=== PATIENT | male | born 1935 | race Caucasian/White ===

== ENCOUNTER → 2023-07-04 | Emergency (ER) | payer OTHER ==
--- NOTE | 2023-07-04 10:05 | RAD REPORT ---
EXAM DESCRIPTION: Judit Single View07/04/2023 9:23 am CLINICAL HISTORY: COUGH COMPARISON: Chest Single View dated 06/13/2016; CHEST SINGLE VIEW dated 11/09/2010 TECHNIQUE: Portable AP view of the chest. FINDINGS: The lungs are clear. No pneumothorax or effusion. Stable cardiomegaly. Mediastinal contou rs are unchanged, with tortuosity of the thoracic aorta. IMPRESSION: No acute pulmonary process. Stable cardiomegaly. .
--- NOTE | 2023-07-04 10:08 | EDPHYS ---
Physician Documentation [facility] Name: Camron Nunez Age: 88 yrs Sex: Male : 1935 Arrival Date: 07/04/2023 Time: 08:39 Bed 14 Private MD: ED Physician Arnol Wyatt HPI: 07/04 09:20 This 88 yrs old Male presents to ER via Ambulatory with complaints of Leg Infection. rn 09:20 The patient presents with cellulitis of the left leg. Onset: The symptoms/episode rn began/occurred 2 day(s) ago. Possible cause(s): unknown. Modifying factors: the symptoms are alleviated by nothing, the symptoms are aggravated by nothing. Severity of symptoms: At their worst the symptoms were mild, in the emergency department the symptoms are unchanged. The patient has not experienced similar symptoms in the past. Patient reports noticed red area to the left pretibial region approximately 2 days ago. No fever or chills. No systemic symptoms. No streaking. No left inguinal pain. No swelling of the leg.. Historical: - PMHx: 08:48 Anxiety; Atrial Fib; CAD; High Cholesterol; ll1 - Immunization history:: Adult Immunizations up to date. - Social history:: Smoking status: Patient denies any tobacco usage or history of. - Family history:: not pertinent. - Hospitalizations: : No recent hospitalization is reported. ROS: 09:20 Constitutional: Negative for fever, chills, and weight loss, Cardiovascular: Negative rn for chest pain, palpitations, and edema, Respiratory: Negative for shortness of breath, wheezing, and pleuritic chest pain, positive for cough Abdomen/GI: Negative for abdominal pain, nausea, vomiting, diarrhea, and constipation, MS/Extremity: Positive for left lower extremity area of swelling and redness Skin: Redness to left lower extremity Exam: 09:20 Constitutional: This is a well developed, well nourished patient who is awake, alert, rn and in no acute distress. Cardiovascular: Regular rate and rhythm. No pulse deficits. Respiratory: Speaking full sentences, unlabored. No increased work of breathing, no retractions or nasal flaring. Skin: 3 cm area of erythema and mild swelling left distal pretibial region. Area of erythema with centralized ulceration, almost the appearance of a bite. No necrosis. No streaking. No crepitus. MS/ Extremity: Pulses equal, no cyanosis. Neurovascular intact. Full, normal range of motion. Equal circumference. Vital Signs: 08:53 BP 162 / 103; Pulse 85; Resp 18; Temp 98.2; Pulse Ox 96% ; Weight 86.18 kg; Height 6 db ft. 0 in. ; 09:45 BP 119 / 87; Pulse 86; Resp 18; Pulse Ox 96% on R/A; db 08:53 Body Mass Index 25.77 (86.18 kg, 182.88 cm) db MDM: 08:43 Patient medically screened. rn 10:07 Differential diagnosis: cellulitis. Differential diagnosis: insect bite. Data reviewed: rn vital signs, nurses notes. Data reviewed: radiologic studies, plain films, and as a result, I will discharge patient. Counseling: I had a detailed discussion with the patient and/or guardian regarding the historical points, exam findings, and any diagnostic results supporting the discharge/admit diagnosis, radiology results, the need for outpatient follow up, to return to the emergency department if symptoms worsen or persist or if there are any questions or concerns that arise at home. Special discussion: I discussed with the patient/guardian in detail that at this point there is no indication for admission to the hospital. It is understood, however, that if the symptoms persist or worsen the patient needs to return immediately for re-evaluation. 07/04 08:58 Order name: XRAY Chest (1 view); Complete Time: 10:07 rn Administered Medications: No medications were administered Disposition Summary: 07/04/23 10:08 Discharge Ordered Notes: Location: Home rn Problem: new rn Symptoms: are unchanged rn Condition: Stable rn Diagnosis - Cellulitis of left lower limb rn Followup: rn - With: Private Physician - When: As needed - Reason: Recheck today's complaints, Re-evaluation by your physician Discharge Instructions: - Discharge Summary Sheet rn - Cellulitis, Adult rn Forms: - Medication Reconciliation Form rn - Thank You Letter rn - Antibiotic government service executive - Prescription Opioid Use rn - Patient Portal Instructions rn - Leadership Thank You Letter rn Prescriptions: - mupirocin 2 % Topical Ointment Kit - apply 1 application TOPICAL route 3 times per day for 7 days; 1 unit; Refills: rn 0, Product Selection Permitted - Bactrim DS 800-160 mg Oral Tablet - take 1 tablet ORAL route every 12 hours for 10 days; 20 tablet; Refills: 0, rn Product Selection Permitted Signatures: Dispatcher [employer] Arnol Siu MD MD rn Melissa Dougherty RN RN ll1 Opal Diaz RN RN db
--- NOTE | 2023-07-04 10:08 | ER ---
Nurse's Notes [facility] Name: Camron Nunez Age: 88 yrs Sex: Male : 1935 Arrival Date: 07/04/2023 Time: 08:39 Bed 14 Private MD: Diagnosis: Cellulitis of left lower limb Presentation: 07/04 08:53 Chief complaint: Patient states: LEFT LOWER LEG WOUND X 2 DAYS. DIME SIZED WOUND ON db LEFT LOWER LEG. LOCALIZED REDNESS NO SPREADING OR TENDERNESS. Coronavirus screen: Vaccine status: Patient reports receiving the 2nd dose of the covid vaccine. Client denies travel out of the [place] in the last 14 days. At this time, the client does not indicate any symptoms associated with coronavirus-19. Ebola Screen: Patient negative for fever greater than or equal to 101.5 degrees Fahrenheit, and additional compatible Ebola Virus Disease symptoms Patient denies exposure to infectious person. Patient denies travel to an Ebola-affected area in the 21 days before illness onset. No symptoms or risks identified at this time. Initial Sepsis Screen: Does the patient meet any 2 criteria? No. Patient's initial sepsis screen is negative. Does the patient have a suspected source of infection? No. Patient's initial sepsis screen is negative. Risk Assessment: Do you want to hurt yourself or someone else? Patient reports no desire to harm self or others. Onset of symptoms was July 02, 2023. 08:53 Method Of Arrival: Ambulatory db 08:53 Acuity: ROMERO 3 db Triage Assessment: 08:53 General: Appears in no apparent distress. comfortable, Behavior is calm, cooperative. db Pain: Complains of pain in left leg. Neuro: Level of Consciousness is awake, alert, obeys commands, Oriented to person, place, time, situation, Speech is normal. Respiratory: Airway is patent Respiratory effort is even, unlabored, Respiratory pattern is regular, symmetrical. Derm: Wound noted left leg. Musculoskeletal: Circulation, motion, and sensation intact. Capillary refill < 3 seconds. Historical: - PMHx: 08:48 Anxiety; Atrial Fib; CAD; High Cholesterol; ll1 - Immunization history:: Adult Immunizations up to date. - Social history:: Smoking status: Patient denies any tobacco usage or history of. - Family history:: not pertinent. - Hospitalizations: : No recent hospitalization is reported. Screenin:18 [facility] ED Fall Risk Assessment (Adult) History of falling in the last 3 months, db including since admission No falls in past 3 months (0 pts) Confusion or Disorientation No (0 pts) Intoxicated or Sedated No (0 pts) Impaired Gait Yes (1 pt) Mobility Assist Device Used Yes (1 pt) Altered Elimination No (0 pt) Score/Fall Risk Level 0 - 2 = Low Risk Oriented to surroundings, Maintained a safe environment. Abuse screen: Denies threats or abuse. Denies injuries from another. Nutritional screening: No deficits noted. Tuberculosis screening: No symptoms or risk factors identified. Assessment: 08:56 Reassessment: Patient appears in no apparent distress at this time. Patient and/or db family updated on plan of care and expected duration. Pain level reassessed. Patient is alert, oriented x 3, equal unlabored respirations, skin warm/dry/pink. General: Appears in no apparent distress. comfortable, Behavior is calm, cooperative. Neuro: Level of Consciousness is awake, alert, obeys commands, Oriented to person, place, time, situation. 10:18 Reassessment: Patient appears in no apparent distress at this time. Patient and/or db family updated on plan of care and expected duration. Pain level reassessed. Patient is alert, oriented x 3, equal unlabored respirations, skin warm/dry/pink. Vital Signs: 08:53 BP 162 / 103; Pulse 85; Resp 18; Temp 98.2; Pulse Ox 96% ; Weight 86.18 kg; Height 6 db ft. 0 in. ; 09:45 BP 119 / 87; Pulse 86; Resp 18; Pulse Ox 96% on R/A; db 08:53 Body Mass Index 25.77 (86.18 kg, 182.88 cm) db ED Course: 08:43 Patient arrived in ED. mg5 08:43 Arnol Wyatt MD is Attending Physician. rn 08:45 Opal Diaz, HERMAN is Primary Nurse. db 08:47 Arm band placed on Patient placed in an exam room, on a stretcher. ll1 08:54 Triage completed. db 09:25 XRAY Chest (1 view) In Process Unspecified. EDMS 10:22 Patient has correct armband on for positive identification. Bed in low position. Call db light in reach. Side rails up X 1. Provided Education on: DISCHARGE. Pulse ox on. NIBP on. 10:22 No provider procedures requiring assistance completed. Patient did not have IV access db during this emergency room visit. Administered Medications: No medications were administered Medication: 10:18 VIS not applicable for this client. db Outcome: : Discharge ordered by . rn 10:22 Discharged to home ambulatory, db 10: Condition: stable 10:22 Discharge instructions given to patient, Instructed on discharge instructions, follow up and referral plans. Prescriptions given X 1, 10:30 Patient left the ED. db Signatures: Dispatcher [employer] EDMS Arnol Wyatt MD MD rn Lewis, Lynsay, RN RN ll1 Opal Diaz RN RN db Henny Martinez mg5
[2023-07-04 11:27] VITALS: BP 119/87; TEMP 98.2; O2SAT 96
== END ==
LOC: ER 08:39
DX: L03.116 Cellulitis of left lower limb (principal); R05.9 Cough, unspecified
CPT/HCPCS: 71045; 99283

== ENCOUNTER 2023-10-19 15:11 | Emergency (ER) | payer OTHER, MEDICARE ==
[2023-10-19 15:44] LABS: Absolute Basophils 0.1 K/uL (0-0.5); Absolute Eosinophils 0.3 K/uL (0-0.5); Absolute Lymphocytes (CBC) 3.3 K/uL (0.7-4.9); Absolute Monocytes 0.7 K/uL (0.1-1.3); Basophils % 0.7 % (0-1.3); Eosinophils % 3.7 % (0-4.4); Hematocrit 38.5 % (39.6-49.0); Hemoglobin 13.1 g/dL (13.6-17.9); Lymphocytes % 45.1 % (15.3-44.8); MCH 31.9 pg (27.0-35.0); MCV 93.9 fL (80-100); MPV 7.3 fL (7.6-11.3); Neutrophils % 41.5 % (41.7-73.7); Nucleated Red Blood Cells % 0.1 % (0-0); Platelets 136 thou/uL (152-406); Red Cell Distribution Width 13.8 % (12.1-15.2)
[2023-10-19 15:59] LABS: Anion Gap 5.7 mEq/L (5.0-15.0); Potassium 3.7 mEq/L (3.5-5.1); Troponin High Sensitivity 10.3 pg/mL (<58.9)
[2023-10-19 16:18] LABS: Albumin 3.4 g/dL (3.4-5.0); Bilirubin Direct 0.3 mg/dL (0-0.2); Bilirubin Indirect, Calculated 0.7 mg/dL (0.2-0.8); Globulin 3.5 g/dL (2.3-3.5); Protein, Total 6.9 g/dL (6.4-8.2)
--- NOTE | 2023-10-19 16:35 | RAD REPORT ---
EXAM DESCRIPTION: Estrada Single View10/19/2023 3:59 pm CLINICAL HISTORY: Chest pain COMPARISON: June 2023 FINDINGS: The lungs appear clear of acute infiltrate. The heart is moderately to markedly enlarged IMPRESSION: No acute abnormalities displayed
--- NOTE | 2023-10-19 17:40 | RAD REPORT ---
EXAM DESCRIPTION: CT - Chest For Pe Angio - 10/19/2023 5:18 pm CLINICAL HISTORY: Chest pain COMPARISON: 2015 TECHNIQUE: Dynamically enhanced axial 3 mm thick images of the chest were obtained during administra tion of 100 mL Isovue 370 IV contrast. Coronal and oblique reconstruction images were generated and r eviewed. Exam utilizes a protocol for optimal evaluation of pulmonary arterial tree. Maximum intensity projections 3D imaging was utilized All CT scans are performed using dose optimization technique as appropriate and may include automated exposure control or mA/KV adjustment according to patient size. FINDINGS: A pulmonary embolus is not seen. A thoracic aortic aneurysm is not noted. Thrombus and ulcerated plaques are present descending thorac ic aorta A pleural effusion is not seen. A pericardial effusion is not seen. Cardiomegaly A lung consolidation is not present. Cirrhotic liver Mild to moderate compression deformity midthoracic vertebral body has a more chronic than acute appea manuel IMPRESSION: Negative for a pulmonary embolism.
--- NOTE | 2023-10-19 17:40 | RAD REPORT ---
EXAM DESCRIPTION: USExtrem Venous W Compress Bil10/19/2023 4:50 pm CLINICAL HISTORY: Leg pain COMPARISON: none FINDINGS: The common femoral, superficial femoral, greater saphenous, popliteal and posterior tibial veins bilaterally are compressible and demonstrate augmentation. Doppler demonstrates good flow. Grayscale, color and spectral analysis performed on all vessels IMPRESSION: No evidence of deep venous thrombosis involving either lower extremity.
--- NOTE | 2023-10-19 18:19 | EDPHYS ---
Physician Documentation [facility] Name: Camron Nunez Age: 88 yrs Sex: Male : 1935 Arrival Date: 10/19/2023 Time: 15:11 Bed 6 Private MD: ED Physician Leandro Butts HPI: 10/18 17:25 This 88 yrs old Male presents to ER via Wheelchair with complaints of Chest Pain, kb Shortness Of Breath. 17:25 Pt is an 88 year old male who presents for shortness of breath that started a few days kb ago and has been getting progressively getting worse. Today pt started having chest pain to center of chest with no radiation. Denies fever. . Historical: - Allergies: 15:27 No Known Allergies; aa5 - PMHx: 15:18 Anxiety; Atrial Fib; CAD; High Cholesterol; aa5 15:27 COPD; aa5 - Immunization history:: Adult Immunizations unknown. - Infectious Disease History:: Denies. - Social history:: Smoking status: Patient/guardian denies using tobacco, but has a distant history of tobacco abuse. ROS: 15:38 Constitutional: As per HPI kb Exam: 15:37 Constitutional: This is a well developed, well nourished patient who is awake, alert, kb and in no acute distress. Head/Face: Normocephalic, atraumatic. ENT: Moist Mucous membranes Respiratory: Respirations even and unlabored. No increased work of breathing. Talking in full sentences Abdomen/GI: Soft, non-tender. No distention Skin: Warm, dry with normal turgor. Normal color. Neuro: Awake and alert, GCS 15, oriented to person, place, time, and situation. Moves all extremities. Normal gait. 15:37 Cardiovascular: Rate: normal, Rhythm: irregularly irregular, 15:37 ECG was reviewed by the Attending Physician. 15:37 Musculoskeletal/extremity: Extremities: grossly normal except: noted in the right leg: kb pain, tenderness, ROM: intact in all extremities, Circulation is intact in all extremities. Sensation intact. DVT Exam: pain, swelling, tenderness, that is mild, of the right leg, Vital Signs: 15:18 BP 133 / 68; Pulse 71; Resp 24 S; Temp 98.2(O); Pulse Ox 96% on R/A; aa5 15:32 BP 133 / 68; Pulse 61; Resp 18; Pulse Ox 98% on R/A; ld1 16:47 BP 108 / 67; Pulse 50; Resp 18; Pulse Ox 93% on R/A; ld1 18:42 BP 115 / 72; Pulse 63; Resp 18; Pulse Ox 100% on R/A; ld1 MDM: 15:25 Patient medically screened. kb 15:38 Data reviewed: vital signs, nurses notes. kb 18:14 Differential diagnosis: arrhythmia, acute mi, pulmonary edema, PE. Consideration of kb Admission/Observation Escalation of care including admission/observation considered. admission considered but pt wants to go home. States he will return for worsening symptoms and his daughter will be with him who is a nurse. . Historians other than the Patient: Daughter/Son: daughter. Counseling: I had a detailed discussion with the patient and/or guardian regarding the historical points, exam findings, and any diagnostic results supporting the discharge/admit diagnosis, lab results, radiology results, the need for outpatient follow up, a fill plant operator, a family practitioner, to return to the emergency department if symptoms worsen or persist or if there are any questions or concerns that arise at home. ED course: daughter states pt has follow up with fill plant operator and roller man next week. 18:18 Refusal of service: The patient/guardian displays adequate decision making capability kb and despite a detailed discussion of alternatives, benefits, risks, and consequences refuses: Admission to the hospital for further work-up and treatment. 10/18 15:21 Order name: Basic Metabolic Panel; Complete Time: 16:00 10/18 15:21 Order name: CBC with Diff; Complete Time: 15:45 10/18 15:21 Order name: Troponin HS; Complete Time: 16:00 ld10/18 15:36 Order name: LFT's; Complete Time: 16:19 kb 10/18 15:36 Order name: D-Dimer; Complete Time: 16:36 kb 10/18 15:36 Order name: Magnesium; Complete Time: 16:19 kb 10/18 15:36 Order name: BNP; Complete Time: 16:19 kb 10/18 15:21 Order name: XRAY Chest (1 view); Complete Time: 16:36 1 10/18 15:36 Order name: US Extremity Venous W Compression Giovani; Complete Time: 17:42 kb 10/18 16:37 Order name: CT Chest For PE Angio; Complete Time: 17:42 kb 10/18 15:21 Order name: EKG; Complete Time: 15: 10/18 15:21 Order name: Cardiac monitoring; Complete Time: 15:10/18 15:21 Order name: EKG - Nurse/Tech; Complete Time: 15:10/18 15:21 Order name: IV Saline Lock; Complete Time: :10/18 15:21 Order name: Labs collected and sent; Complete Time: 15: ld10/18 15:21 Order name: O2 Per Protocol; Complete Time: 15:10/18 15:21 Order name: O2 Sat Monitoring; Complete Time: : ld EC:37 Rate is 70 beats/min. Rhythm is regular. Left axis deviation noted. QRS interval is kb normal at 148 msec. QT interval is prolonged at 503 msec. Administered Medications: No medications were administered Disposition Summary: 10/19/23 18:18 Discharge Ordered Notes: Location: Home kb Condition: Stable kb Diagnosis - Chest pain, unspecified kb - Dyspnea kb Followup: kb - With: Emergency Department - When: As needed - Reason: Worsening of condition Followup: kb - With: Private Physician - When: 2 - 3 days - Reason: Recheck today's complaints, Continuance of care, Re-evaluation by your physician Discharge Instructions: - Discharge Summary Sheet kb - Shortness of Breath, Adult, [id number] kb - Nonspecific Chest Pain, Adult, [id number] kb Forms: - Medication Reconciliation Form kb - Antibiotic Education kb - Prescription Opioid Use kb - Patient Portal Instructions kb - Leadership Thank You Letter kb Signatures: Dispatcher [employer] EDMS Joanna Barber, SWING TYPE LATHE OPERATOR-C SWING TYPE LATHE OPERATOR-Ckb Rosario Richards, RN RN aa5 Simran Payton RN RN ld1 Corrections: (The following items were deleted from the chart) 15:22 15:22 BASIC METABOLIC PANEL+C.LAB.BRZ ordered. EDMS EDMS 15:22 15:22 CBC+H.LAB.BRZ ordered. EDMS EDMS 15:22 15:22 Troponin High Sensitivity+C.LAB.BRZ ordered. EDMS EDMS 15:36 15:36 Extrem Venous W Compression Giovani+US.RAD.BRZ ordered. EDMS EDMS
--- NOTE | 2023-10-19 18:19 | ER ---
Nurse's Notes [facility] Name: Camron Nunez Age: 88 yrs Sex: Male : 1935 Arrival Date: 10/19/2023 Time: 15:11 Bed 6 Private MD: Diagnosis: Chest pain, unspecified;Dyspnea Presentation: 10/18 15:18 Chief complaint: Patient states: chest pain today, also reports SOB. Pt's family aa5 reports cough. 15:18 Coronavirus screen: shortness of breath. Ebola Screen: Patient denies travel to an [facility] Ebola-affected area in the 21 days before illness onset. Initial Sepsis Screen: Does the patient meet any 2 criteria? No. Patient's initial sepsis screen is negative. Does the patient have a suspected source of infection? No. Patient's initial sepsis screen is negative. Risk Assessment: Do you want to hurt yourself or someone else? Patient reports no desire to harm self or others. Onset of symptoms was September 2023. 15:18 Acuity: ROMERO 2 aa5 15:18 Method Of Arrival: Wheelchair aa5 Historical: - Allergies: 15:27 No Known Allergies; aa5 - PMHx: 15:18 Anxiety; Atrial Fib; CAD; High Cholesterol; aa5 15:27 COPD; aa5 - Immunization history:: Adult Immunizations unknown. - Infectious Disease History:: Denies. - Social history:: Smoking status: Patient/guardian denies using tobacco, but has a distant history of tobacco abuse. Screenin:32 [facility] ED Fall Risk Assessment (Adult) History of falling in the last 3 months, ld1 including since admission No falls in past 3 months (0 pts). Abuse screen: Denies threats or abuse. Denies injuries from another. Nutritional screening: No deficits noted. Tuberculosis screening: No symptoms or risk factors identified. Assessment: 15:32 General: Appears in no apparent distress. comfortable, Behavior is calm, cooperative, ld1 appropriate for age. Pain: Complains of pain in chest Pain does not radiate. Pain currently is 0 out of 10 on a pain scale. at worst was 8 out of 10 on a pain scale. Quality of pain is described as throbbing, Pain began gradually, Is intermittent. Neuro: Level of Consciousness is awake, alert, obeys commands, Oriented to person, place, time, situation. Neuro:. Cardiovascular: Capillary refill < 3 seconds Patient's skin is warm and dry. Cardiovascular: Rhythm is irregular. Respiratory: Reports. GI: No signs and/or symptoms were reported involving the gastrointestinal system. : No signs and/or symptoms were reported regarding the genitourinary system. EENT: No signs and/or symptoms were reported regarding the EENT system. Derm: No signs and/or symptoms reported regarding the dermatologic system. Musculoskeletal: No signs and/or symptoms reported regarding the musculoskeletal system. 18:42 Reassessment: Patient appears in no apparent distress at this time. No changes from ld1 previously documented assessment. Patient and/or family updated on plan of care and expected duration. Pain level reassessed. Patient is alert, oriented x 3, equal unlabored respirations, skin warm/dry/pink. Vital Signs: 15:18 BP 133 / 68; Pulse 71; Resp 24 S; Temp 98.2(O); Pulse Ox 96% on R/A; aa5 15:32 BP 133 / 68; Pulse 61; Resp 18; Pulse Ox 98% on R/A; ld1 16:47 BP 108 / 67; Pulse 50; Resp 18; Pulse Ox 93% on R/A; ld1 18:42 BP 115 / 72; Pulse 63; Resp 18; Pulse Ox 100% on R/A; ld1 ED Course: 15:15 Patient arrived in ED. mg5 15:18 Arm band placed on. aa5 15:25 Joanna Barber FNP-C [facility]. kb 15:25 Leandro Butts MD is Attending Physician. kb 15:26 Lennie Buckley, HERMAN is Primary Nurse. nj1 15:27 Client placed on continuous cardiac and pulse oximetry monitoring. NIBP monitoring hb applied. quality assurance monitor body on. Pulse ox on. NIBP on. 15:27 EKG done, by ED staff, reviewed by Joanna LLANES. hb 15:28 Triage completed. aa5 15:29 Basic Metabolic Panel Sent. bc6 15:29 CBC with Diff Sent. bc6 15:29 Troponin HS Sent. bc6 15:32 Patient has correct armband on for positive identification. Placed in gown. Bed in low ld1 position. Call light in reach. Side rails up X2. quality assurance monitor body on. Door closed. Noise minimized. Warm blanket given. 15:32 No provider procedures requiring assistance completed. Inserted saline lock: 20 gauge ld1 in right upper arm, using aseptic technique. Blood collected. O2 via RA. 16:01 XRAY Chest (1 view) In Process Unspecified. EDMS 16:47 Simran Payton, RN is Primary Nurse. ld1 16:48 US Extremity Venous W Compression Giovani In Process Unspecified. EDMS 17:20 CT Chest For PE Angio In Process Unspecified. EDMS 18:42 IV discontinued, intact, bleeding controlled, No redness/swelling at site. ld1 Administered Medications: No medications were administered Medication: 15:32 VIS not applicable for this client. ld1 Outcome: 18:18 Discharge ordered by . kb 18:42 Discharged to home ambulatory, ld1 18:42 Condition: stable 18:42 Discharge instructions given to patient, Instructed on discharge instructions, follow up and referral plans. Demonstrated understanding of instructions, follow-up care, 18:42 Patient left the ED. ld1 Signatures: Dispatcher [employer] EDMS Joanna Barber, SWEEPER OPERATOR HIGHWAYS-C SWEEPER OPERATOR HIGHWAYS-CkRosario Moon, RN RN aa5 Eva Villagran RN RN Simran Payton, RN RN ld1 Alyssa Maldonado 6 Lennie Buckley, RN RN mo1 Henny Martinez mg5
[2023-10-19 19:12] VITALS: BP 115/72; TEMP 98.2; O2SAT 100
--- NOTE | 2023-10-22 13:03 | EKG ---
Test Date: 2023-10-19 Test Time: 15:26:55 [employer] Maker: DEBI MEASUREMENT RESULTS: Intervals: Rate: 70 [place]: QRSD: 148 QT: 466 QTc: 503 [place]: P: [place]: QRS: -87 T: -3 INTERPRETIVE STATEMENTS: Atrial fibrillation Left axis deviation Right bundle branch block Abnormal ECG Compared to ECG 06/13/2016 00:42:00 Ventricular premature complex(es) no longer present Electronically Signed On 10-22-23 12:56:50 CDT by Tarik Vincent
== END 2023-10-19 18:42 | disposition home or self-care (01) ==
LOC: ER 15:11
DX: R07.9 Chest pain, unspecified (principal); R06.00 Dyspnea, unspecified; J44.9 Chronic obstructive pulmonary disease, unspecified; F41.9 Anxiety disorder, unspecified
CPT/HCPCS: 93005; 85025; 80048; 36415; 83735; 85379; 80076; 84484; 83880; 71275; 71045; 93970; Q9967

== ENCOUNTER 2024-08-18 15:13 | Inpatient (IN) | payer MEDICARE, OTHER ==
--- NOTE | 2024-08-18 16:43 | RAD REPORT ---
Extremity Venous Uni Ltd CLINICAL INDICATION: Male, 89 years old.Pain;Swelling RIGHT TECHNIQUE: Complete duplex sonography of the lower extremity veins was performed of the affected limb . The examination included compression for vein patency, color Doppler imaging and flow augmentation in response to distal compression of the distal external iliac, common femoral, femoral, popliteal, peroneal, tibial and great saphenous veins. [id number]. COMPARISON: No prior exams FINDINGS: Duplex sonography imaging demonstrates all deep veins examined to be fully compressible with spontane ous, phasic and augmented flow in the affected limb. IMPRESSION: No evidence of deep venous thrombosis in the right lower extremity.
--- NOTE | 2024-08-18 17:05 | RAD REPORT ---
EXAM: Left lower extremity arterial ultrasound HISTORY: HS MAIN right leg Pain;Swelling Bed Name: 7 COMPARISON: None TECHNIQUE: Multiplanar grayscale and color Doppler images were obtained and a left lower extremity ar terial ultrasound. Spectral analysis of the Doppler waveforms were performed. FINDINGS: No significant calcified plaque is seen in the left lower extremity. Left lower extremity: Common femoral artery: Triphasic Superficial femoral artery: Triphasic Popliteal artery: Triphasic Posterior tibial artery: Monophasic Dorsalis pedis artery: Monophasic IMPRESSION: Monophasic waveforms in the posterior tibial and dorsalis pedis arteries with suggestion of at least moderate stenoses.
[2024-08-18 17:54] LABS: Absolute Basophils 0.1 K/uL (0-0.5); Absolute Eosinophils 0.3 K/uL (0-0.5); Absolute Lymphocytes (CBC) 3.5 K/uL (0.7-4.9); Absolute Monocytes 0.9 K/uL (0.1-1.3); Absolute Neutrophil 5.1 K/uL (1.8-8.0); Basophils % 0.5 % (0-1.3); Eosinophils % 3.2 % (0-4.4); Hematocrit 39.3 % (39.6-49.0); Hemoglobin 13.9 g/dL (13.6-17.9); Lymphocytes % 35.6 % (15.3-44.8); MCHC 35.4 g/dL (32.0-36.0); MCV 93.4 fL (80-100); MPV 6.9 fL (7.6-11.3); Monocytes % 9.6 % (3.3-12.3); Neutrophils % 51.1 % (41.7-73.7); Nucleated Red Blood Cells % 0.1 % (0-0); Platelets 155 thou/uL (152-406); RBC Red Blood Cell Count 4.21 M/uL (4.33-5.43); Red Cell Distribution Width 14.2 % (12.1-15.2)
--- NOTE | 2024-08-18 18:02 | RAD REPORT ---
EXAMINATION: Tib Fib Right CLINICAL INDICATION: Male, 89 years old. Swelling;Pain COMPARISON: No prior exam. VIEWS: Four views FINDINGS: No fracture of the tibia or fibula identified. No radiographic evidence of osteomyelitis or soft tiss ue gas. Tricompartmental degenerative changes are present at the knee. Calcaneal spurring and midfoot degener ative changes. IMPRESSION: No acute osseous abnormality.
[2024-08-18 18:05] LABS: PT Prothrombin Time 25.7 SECONDS (10.0-13.0); PTT, Activated Partial Thromb 39.6 SECONDS (24.3-36.9); Protime INR 2.35
[2024-08-18 18:12] LABS: AST/SGOT 15 U/L (15-37); Albumin 3.4 g/dL (3.4-5.0); Albumin/Globulin Ratio 0.9 (1.1-1.8); Alkaline Phosphatase 131 U/L (45-117); Anion Gap 7.2 mEq/L (5.0-15.0); BUN Blood Urea Nitrogen 16 mg/dL (7-18); Bicarbonate 33 mEq/L (21-32); Bilirubin Total 1.6 mg/dL (0.2-1.0); Glomerular Filtration Rate 63 ml/min (=/>90); Glucose Level 101 mg/dL (74-106); Potassium 4.2 mEq/L (3.5-5.1); Protein, Total 7.4 g/dL (6.4-8.2); Sodium Level 139 mEq/L (136-145)
[2024-08-18 18:13] LABS: ALT/SGPT < 14 U/L (16-61)
[2024-08-18] MEDS ORDERED: CODEINE 30MG/APAP 300MG TAB ONE (18:55)
--- NOTE | 2024-08-18 20:24 | RAD REPORT ---
EXAMINATION: Knee Right Wo Cont CLINICAL INDICATION: Male, 89 years old.lower leg cellulitis with possible abscess TECHNIQUE: CT above extremity was performed without contrast. Reformats were performed. One or more o f the following dose reduction techniques were used: Automated exposure control, adjustment of the mA and/or kV according to patient size, and/or iterative reconstruction. Unless otherwise specified, incidental findings do not require dedicated imaging follow-up. [id number]. COMPARISON: Radiographs same-day FINDINGS: No right knee fracture identified. Tricompartmental degenerative changes identified with moderate med ial and mild lateral compartment joint space narrowing and moderate patellofemoral compartment spurring. Anterior to the patellar tendon and tibial tubercle, a subcutaneous hypoattenuating lesion is noted m easuring 5.7 x 4.5 x 2.1 cm is identified. This is solid in appearance. Could represent a hematoma. This does not have the appearance of an abscess. Performed vascular calcifications. IMPRESSION: No abscess or osteomyelitis. No right knee fracture. Superficial nodule anterior to the patellar tend on could represent a hematoma or other nonspecific soft tissue mass. If concern for neoplasm, MRI with and without contrast could further evaluate.
[2024-08-18] MEDS ORDERED: VANCOMYCIN 1 GM/VIAL ONE (20:43)
[2024-08-18] MEDS ORDERED: NA CHLORIDE 0.9% 250 ML ONE (20:43)
[2024-08-18 20:47] LABS: Specific Gravity 1.017 (1.005-1.030); Urine Bilirubin NEGATIVE (Negative); Urine Blood Negative (Negative); Urine Clarity Clear (Clear); Urine Color Yellow (Yellow); Urine Glucose NEGATIVE (Negative); Urine Ketones NEGATIVE (Negative); Urine Microscopic Reflex YN NO UMIC; Urine Nitrite NEGATIVE (Negative); Urine Protein NEGATIVE (Negative); Urine Urobilinogen 2+ (Normal)
--- NOTE | 2024-08-18 20:49 | ER ---
Nurse's Notes [facility] Name: Camron Nunez Age: 89 yrs Sex: Male : 1935 Arrival Date: 08/18/2024 Time: 15:13 Bed 3 Private MD: Diagnosis: Cellulitis of right lower limb;Infected Hematoma of Right lower Leg;Chronic atrial fibrillation Presentation: 08/18 16:11 Chief complaint: Spouse and/or significant other states: patient fell last Sunday ap3 08/12/24 and is having swelling to the right lower extremity with redness. Coronavirus screen: At this time, the client does not indicate any symptoms associated with coronavirus-19. Ebola Screen: No symptoms or risks identified at this time. Onset of symptoms was August 12, 2024. 16:11 Method Of Arrival: Wheelchair ap3 16:13 Initial Sepsis Screen: Does the patient meet any 2 criteria? No. Patient's initial ap3 sepsis screen is negative. Does the patient have a suspected source of infection? No. Patient's initial sepsis screen is negative. Risk Assessment: Do you want to hurt yourself or someone else? Patient reports no desire to harm self or others. 16:13 Acuity: ROMERO 3 ap3 Triage Assessment: 16:13 General: Appears in no apparent distress. Behavior is calm, cooperative, appropriate ap3 for age. Pain: Complains of pain in right leg. Neuro: Level of Consciousness is awake, alert, obeys commands, Oriented to person, place, time, situation, Appropriate for age. Cardiovascular: Patient's skin is warm and dry. Respiratory: Airway is patent Respiratory effort is even, unlabored, Respiratory pattern is regular, symmetrical. Historical: - Allergies: 16:12 No Known Allergies; ap3 - PMHx: 16:12 Anxiety; Anxiety; Atrial Fib; CAD; COPD; High Cholesterol; ap3 - Immunization history:: Client reports receiving the 2nd dose of the Covid vaccine, Flu vaccine is up to date. - Infectious Disease History:: Denies. - Social history:: Smoking status: Patient/guardian denies using tobacco. Screenin:13 [facility] ED Fall Risk Assessment (Adult) History of falling in the last 3 months, ap3 including since admission Yes- fall prone (multiple falls) (3 pts) Confusion or Disorientation No (0 pts) Intoxicated or Sedated No (0 pts) Impaired Gait Yes (1 pt) Mobility Assist Device Used No (0 pt) Altered Elimination No (0 pt) Score/Fall Risk Level 3 or more points = High Risk Oriented to surroundings, Maintained a safe environment, Educated pt \T\ family on fall prevention, incl call for assistance when getting out of bed, Assessed \T\ reinforced patient's understanding of fall precautions, Hourly rounding (assess needs \T\ fall precautionary measures) done, Used ambulatory aids as needed (educated on \T\ assisted with), Remained w/in arm's length of patient and in sight while toileting, Offered frequent toileting (1:1 observation), Utilized family, sitter, or virtual nuclear medicine tech as indicated. Abuse screen: Denies threats or abuse. Nutritional screening: No deficits noted. Tuberculosis screening: No symptoms or risk factors identified. Assessment: 18:25 General: Appears in no apparent distress. comfortable, Behavior is calm, cooperative. ss General: family member reports decreased urine output since yesterday. Pain: Complains of pain in R knee, R lower leg Pain currently is 3 out of 10 on a pain scale. Quality of pain is described as aching, tender, Pain began 6 days ago Is continuous. Neuro: Level of Consciousness is awake, alert, obeys commands, Oriented to person, place, time, situation. Respiratory: Airway is patent Respiratory effort is even, unlabored, Respiratory pattern is regular, symmetrical, Denies cough, shortness of breath. GI: Patient currently denies diarrhea, nausea, vomiting. EENT: Oral mucosa is moist. hard of hearing. Hearing aids in place, bilaterally. Derm: Bruising that is dark purple, green, on R knee/ R lower leg. Musculoskeletal: Swelling present in right leg. Vital Signs: 16:11 BP 133 / 75; Pulse 75; Resp 18; Temp 98.1; Pulse Ox 100% ; Weight 83.91 kg; Height 6 ap3 ft. 0 in. ; 18:14 BP 106 / 67; Pulse 68; Resp 15; Pulse Ox 94% on R/A; Pain 3/10; ss 19:40 BP 121 / 70; Pulse 74; Resp 16; Pulse Ox 95% ; cp4 21:14 BP 122 / 75; Pulse 71; Resp 18; Pulse Ox 95% ; cp4 21:59 BP 114 / 62; Pulse 80; Resp 18; Pulse Ox 98% ; cp4 16:11 Body Mass Index 25.09 (83.91 kg, 182.88 cm) ap3 18:14 Pain Scale: Adult ss ED Course: 15:17 Patient arrived in ED. al6 15:29 Ward Hernandez PA is PHCP. cp 15:29 Vazquez Ventura MD is Attending Physician. cp 16:14 Triage completed. ap3 16:14 Arm band placed on right wrist. ap3 16:41 US Lower Extremity Artery Uni Ltd In Process Unspecified. EDMS 16:41 US Extremity Venous Unilateral Ltd In Process Unspecified. EDMS 17:26 Denise Angelo, RN is Primary Nurse. ss 17:45 Inserted saline lock: 20 gauge in right upper arm, using aseptic technique. Blood ss collected. Flushed with 10 mL NS. Patient maintains SpO2 saturation greater than 95% on room air. 17:50 XRAY Tib Fib RIGHT In Process Unspecified. EDMS 18:25 Patient has correct armband on for positive identification. Bed in low position. Call ss light in reach. Side rails up X2. Adult w/ patient. telemetry monitor on. Pulse ox on. NIBP on. Warm blanket given. 19:00 Report given to Tejal Avendano RN and HERMAN Olguin. ss 20:01 Knee Right Wo Cont In Process Unspecified. EDMS 20:33 Sanchez cath inserted, using sterile technique, 16 Fr., by bankruptcy law specialist, balloon inflated, to cp4 gravity drainage, urine specimen collected. 20:37 Urinalysis w/ reflexes Sent. oe 20:47 Cezar Kumar MD is Hospitalizing Provider. cp 21:58 No provider procedures requiring assistance completed. Patient admitted, IV remains in cp4 place. 21:59 Provided Education on: admission. cp4 Administered Medications: 18:59 Drug: Acetaminophen-Codeine PO (300 mg-30 mg) 2 tabs PO once; RASS on ADMIN: Combtv4, ss Very Agttd3, Agttd2, Rstlss1, AlertClm0, Drwsy-1, Lt Sdtn-2, Mod Sdtn-3, Dp Sdtn-4, UnArsble-5 Route: PO; 20:17 Follow up: Response: No adverse reaction; Pain is decreased cp4 21:57 Follow up: Response: No adverse reaction; Pain is decreased cp4 20:52 Drug: vancoMYCIN IVPB 1 grams IVPB once over 2 hrs Route: IVPB; Infused Over: 2 hrs; cp4 Site: right antecubital; 21:57 Follow up: Response: No adverse reaction; IV Status: Completed infusion cp4 Medication: 18:25 VIS not applicable for this client. ss Output: 20:34 Urine: 150ml (Sanchez); Total: 150ml. cp4 Outcome: 20:48 Decision to Hospitalize by Provider. cp 21:58 Admitted to Med/surg accompanied by tech, via wheelchair, room 6, with chart, cp4 21:58 Condition: stable 21:58 Instructed on the need for admit, 22:30 Patient left the ED. cp4 Signatures: Dispatcher [employer] EDMS Denise Angelo RN RN Ward Molina PA PA cp Espinosa, Orlando oe Prokisch, Amanda, RN RN Clau Helms cp4 Amparo Duran
--- NOTE | 2024-08-18 20:49 | EDPHYS ---
Physician Documentation [facility] Name: Camron Nunez Age: 89 yrs Sex: Male : 1935 Arrival Date: 08/18/2024 Time: 15:13 Bed 3 Private MD: ED Physician Vazquez Ventura HPI: 08/18 16:25 This 89 yrs old Male presents to ER via Wheelchair with complaints of Leg Swelling. cp 16:25 The patient presents with pain, that is acute. The complaints affect the left knee and cp left lower leg. 16:25 Context: patient reports fall onto right knee and lower leg this past Sunday. Reports cp increasing swelling. Takes Xarelto blood thinner. 16:25 Associated signs and symptoms: Pertinent positives: warmth, Pertinent negatives fever, cp numbness. Historical: - Allergies: 16:12 No Known Allergies; ap3 - PMHx: 16:12 Anxiety; Anxiety; Atrial Fib; CAD; COPD; High Cholesterol; ap3 - Immunization history:: Client reports receiving the 2nd dose of the Covid vaccine, Flu vaccine is up to date. - Infectious Disease History:: Denies. - Social history:: Smoking status: Patient/guardian denies using tobacco. ROS: 16:30 Constitutional: Negative for body aches, chills, fever, poor PO intake, cp 16:30 Respiratory: Negative for cough, shortness of breath, wheezing, cp 16:30 Abdomen/GI: Negative for abdominal pain, nausea, vomiting, and diarrhea, 16:30 Eyes: Negative for injury, pain, redness, and discharge, cp 16:30 Cardiovascular: Positive for edema, Negative for chest pain, palpitations, 16:30 Neuro: Negative for altered mental status, dizziness, headache, weakness, 16:30 All other systems are negative, Exam: 16:33 Constitutional: The patient appears in no acute distress, alert, awake, cp non-diaphoretic, non-toxic, well developed, well nourished, uncomfortable, 16:33 Head/Face: Normocephalic, atraumatic. cp 16:33 Eyes: Periorbital structures: appear normal, Conjunctiva: normal, no exudate, no injection, Sclera: no appreciated abnormality, Lids and lashes: appear normal, bilaterally, 16:33 ENT: External ear(s): are unremarkable, Nose: is normal, Mouth: Lips: moist, Oral mucosa: moist, 16:33 Chest/axilla: Inspection: normal, 16:33 Cardiovascular: Rate: normal, Rhythm: irregular, Edema: ankle edema, that is mild, JVD: is not appreciated, 16:33 Respiratory: the patient does not display signs of respiratory distress, Respirations: normal, no use of accessory muscles, no retractions, labored breathing, is not present, Breath sounds: decreased breath sounds, that are mild, throughout, 16:33 Abdomen/GI: Inspection: abdomen appears normal, Palpation: abdomen is soft and non-tender, in all quadrants, 16:33 Musculoskeletal/extremity: Extremities: noted in the right knee and right lower leg: golf ball hematoma noted anterior lower knee with moderate surrounding and circumferential erythema, tenderness, 16:33 Neuro: Orientation: to person, place \T\ time. Mentation: is normal, 18:00 ECG was reviewed by the Attending Physician. Vital Signs: 16:11 BP 133 / 75; Pulse 75; Resp 18; Temp 98.1; Pulse Ox 100% ; Weight 83.91 kg; Height 6 ap3 ft. 0 in. ; 18:14 BP 106 / 67; Pulse 68; Resp 15; Pulse Ox 94% on R/A; Pain 3/10; ss 19:40 BP 121 / 70; Pulse 74; Resp 16; Pulse Ox 95% ; cp4 21:14 BP 122 / 75; Pulse 71; Resp 18; Pulse Ox 95% ; cp4 21:59 BP 114 / 62; Pulse 80; Resp 18; Pulse Ox 98% ; cp4 16:11 Body Mass Index 25.09 (83.91 kg, 182.88 cm) ap3 18:14 Pain Scale: Adult ss MDM: 16:15 Medical Screening Exam initiated cp 17:00 Differential diagnosis: hematoma, DVT, cellulitis, abscess, sepsis. cp 20:45 Data reviewed: vital signs, nurses notes, lab test result(s), EKG, radiologic studies, cp CT scan, plain films, ultrasound. 20:45 Management of patient was discussed with the following: Poultry Veterinarian: DR Rasmussen who will cp consult for surgical I\T\D and requests patient be admitted to services of hospitalist. I considered the following discharge prescriptions or medication management in the emergency department Medications were administered in the Emergency Department. See MAR. Independent interpretation of the following test(s) in the Emergency Department EKG: See my EKG interpretation above. Care significantly affected by the following chronic conditions: Chronic Obstructive Pulmonary Disease. Counseling: I had a detailed discussion with the patient and/or guardian regarding the historical points, exam findings, and any diagnostic results supporting the discharge/admit diagnosis, lab results, radiology results, the need for further work-up and treatment in the hospital. 20:50 Management of patient was discussed with the following: Hospitalist: DR José riddle admit after discussion. 08/18 16:21 Order name: Blood Culture Adult (2) cp 08/18 16:21 Order name: CBC with Diff; Complete Time: 18:07 cp 08/18 18:07 Interpretation: Normal except: RBC 4.21; HCT 39.3; MPV 6.9. cp 08/18 16:21 Order name: CMP; Complete Time: 18:39 cp 08/18 18:39 Interpretation: Normal except: CO2 33; GFR 63; ALT < 14; ALK 131; BILIT 1.6; GLOB 4.0; cp A/G 0.9. 08/18 16:21 Order name: Lactate w/ 2H reflex if indic.; Complete Time: 18:39 cp 08/18 16:21 Order name: Protime (+inr); Complete Time: 18:07 cp 08/18 16:21 Order name: Ptt, Activated; Complete Time: 18:07 cp 08/18 16:21 Order name: Urinalysis w/ reflexes; Complete Time: 10:26 cp 08/18 21:01 Order name: Urinalysis w/ reflexes EDMS 08/18 21:01 Order name: CBC with Automated Diff EDMS 08/18 21:01 Order name: CBC with Automated Diff; Complete Time: 10:26 EDMS 08/18 21:01 Order name: Comprehensive Metabolic Panel EDMS 08/18 21:01 Order name: Comprehensive Metabolic Panel; Complete Time: 10:26 EDMS 08/18 16:21 Order name: US Lower Extremity Artery Uni Ltd cp 08/18 16:21 Order name: US Extremity Venous Unilateral Ltd; Complete Time: 17:25 cp 08/18 17:25 Order name: XRAY Tib Fib RIGHT; Complete Time: 18:07 cp 08/18 19:39 Order name: Knee Right Wo Cont; Complete Time: 20:28 EDWI 08/18 21:01 Order name: CONS Physician Consult EDWI 08/18 16:21 Order name: Accucheck; Complete Time: 18:25 cp 08/18 16:21 Order name: Cardiac monitoring; Complete Time: 18:24 cp 08/18 16:21 Order name: EKG - Nurse/Tech; Complete Time: 18:24 cp 08/18 16:21 Order name: IV Saline Lock - Large Bore; Complete Time: 18:24 cp 08/18 16:21 Order name: Labs collected and sent; Complete Time: 18:24 cp 08/18 16:21 Order name: O2 Per Protocol; Complete Time: 18:24 cp 08/18 16:21 Order name: O2 Sat Monitoring; Complete Time: 18:24 cp 08/18 16:21 Order name: Vital Signs; Complete Time: 18:25 cp 08/18 20:17 Order name: Sanchez; Complete Time: 20:32 cp4 EC:00 Rate is 69 beats/min. Rhythm is irregular. QRS interval is prolonged at 142 msec. QT cp interval is normal. T waves are Inverted in leads aVR, V2. Interpreted by me. Reviewed by me. Administered Medications: 18:59 Drug: Acetaminophen-Codeine PO (300 mg-30 mg) 2 tabs PO once; RASS on ADMIN: Combtv4, ss Very Agttd3, Agttd2, Rstlss1, AlertClm0, Drwsy-1, Lt Sdtn-2, Mod Sdtn-3, Dp Sdtn-4, UnArsble-5 Route: PO; 20:17 Follow up: Response: No adverse reaction; Pain is decreased cp4 21:57 Follow up: Response: No adverse reaction; Pain is decreased cp4 20:52 Drug: vancoMYCIN IVPB 1 grams IVPB once over 2 hrs Route: IVPB; Infused Over: 2 hrs; cp4 Site: right antecubital; 21:57 Follow up: Response: No adverse reaction; IV Status: Completed infusion cp4 Disposition Summary: 08/18/24 20:48 Hospitalization Ordered Notes: Hospitalization Status: Inpatient Admission cp Provider: Cezar Kumar cp Condition: Stable cp Problem: new cp Symptoms: have improved cp Bed/Room Type: Standard cp Location: Intensive Care Unit(08/18/24 21:30) cg Room Assignment: 6-(08/18/24 21:30) cg Diagnosis - Cellulitis of right lower limb cp - Infected Hematoma of Right lower Leg cp - Chronic atrial fibrillation cp Forms: - Medication Reconciliation Form cp - SBAR form cp - Leadership Thank You Letter cp Addendum: 08/23/2024 12:46 I was immediately available for consultation during this patient's visit. I did not e c2 personally see the patient or discuss the patient with the [facility]. . Signatures: Dispatcher [employer] EDMS Denise Angelo, RN RN ss Ward Hernandez PA PA cp Garcia, Cindy, RN RN cg Tejal Mckeon RN RN ap3 Vazquez Ventura MD MD ec2 Clau Huntley cp4 Corrections: (The following items were deleted from the chart) 08/18 16:21 16:21 BLOOD CULTURE*+BA.LAB.BRZ ordered. EDMS EDMS 16:21 16:21 CBC+H.LAB.BRZ ordered. EDMS EDMS 16:21 16:21 COMPREHENSIVE METABOLIC PANEL+C.LAB.BRZ ordered. EDMS EDMS 16:21 16:21 LACTATE+C.LAB.BRZ ordered. EDMS EDMS 16:21 16:21 PROTIME (+INR)+COAG.LAB.BRZ ordered. EDMS EDMS 16:21 16:21 PTT, ACTIVATED+COAG.LAB.BRZ ordered. EDMS EDMS 16:21 16:21 Urinalysis+U.LAB.BRZ ordered. EDMS EDMS 16:21 16:21 Lower Extremity Artery Uni Ltd+US.RAD.BRZ ordered. EDMS EDMS 16:22 16:21 Extremity Venous Uni Ltd+US.RAD.BRZ ordered. EDMS EDMS 17:26 17:26 Tib Fib Right+RAD.RAD.BRZ ordered. EDMS EDMS 19:39 18:47 CT RIGHT KNEE WO CONTRAST ordered. EDMS EDMS 21:30 20:48 Telemetry/MedSurg (Inpatient) cp cg 21:30 20:48 cp cg
--- NOTE | 2024-08-18 20:53 | P.HP ---
Certification for Inpatient Patient admitted to: Inpatient With expected LOS: >2 Midnights Practitioner: I am a practitioner with admitting privileges, knowledge of patient current condition, hospital course, and medical plan of care. Services: Services provided to patient in accordance with Admission requirements found in Title 42 Section 412.3 of the Code of Federal Regulations Patient History Date of Service: 08/18/24 Reason for admission: Pain and swelling in the right leg History of Present Illness: 89 yrs old Male with past medical history of anxiety, atrial fibrillation, on Xarelto, CAD, COPD, high cholesterol, brought to ER with swelling of the right leg which started a day ago and has been progressively getting worse and was brought to ER. Patient denies any fever or chills. No chest pain or shortness of breath. : patient fell last Sunday08/12/24 and started having swelling to the right lower extremity with redness. No nausea vomiting diarrhea Patient was assessed in the ER and is admitted for further management of right lower extremity cellulitis Home medications list reviewed: Yes - Past Medical/Surgical History Past Medical History: Reviewed- Non-Contributory Past Surgical History: Reviewed- Non-Contributory - Family History Family History: Reviewed- Non-Contributory - Social History Smoking Status: Never smoker Review of Systems 10-point ROS is otherwise unremarkable Physical Examination - Vital Signs Temperature: 97.2 F Blood Pressure: 136/78 Pulse: 82 Respirations: 18 Pulse Ox (%): 92 - Physical Exam General: Alert, In no apparent distress, Cooperative HEENT: Atraumatic, Normocephalic Neck: 2+ carotid pulse no bruit, No Thyromegaly Respiratory: Clear to auscultation bilaterally, Normal air movement Cardiovascular: Regular rate/rhythm, Normal S1 S2 Capillary refill: <2 Seconds Gastrointestinal: Soft and benign, W/out hepatosplenomegaly Musculoskeletal: No clubbing, Erythema, Tenderness, Warmth Integumentary: Tenderness/swelling, Erythema, Warmth Neurological: Normal strength at 5/5 x4 extr, Cranial nerves 3-12 intact Lymphatics: No axilla or inguinal lymphadenopathy - Studies Laboratory Data (last 24 hrs) 08/18/24 08/18/24 08/18/24 17:45 17:45 17:45 WBC 9.90 Hgb 13.9 Hct 39.3 L Plt Count 155 PT 25.7 H INR 2.35 APTT 39.6 H Sodium 139 Potassium 4.2 BUN 16 Creatinine 1.13 Glucose 101 Total Bilirubin 1.6 H AST 15 ALT < 14 L Alkaline Phosphatase 131 H Assessment and Plan - Plan Right lower extremity cellulitis Pain control Started on IV antibiotic Monitor closely on telemetry CT findings noted Doppler negative for DVT X-ray no fracture Surgical consult Hypertension Antihypertensives titrated Continue home medications and titrate as needed Hyperlipidemia Continue statin Atrial fibrillation Continue home medications and titrate as needed Will hold Xarelto for now GI/DVT prophylaxis Advanced directive full code Discharge Plan: Home Plan to discharge in: 48 Hours - Advance Directives Does patient have a Living Will: No Does patient have a Durable POA for Healthcare: No - Code Status/Comfort Care Code Status: Full Code Time Spent Managing Pts Care (In Minutes): 48
[2024-08-18] MEDS ORDERED: ONDANSETRON 4 MG/2 ML VIAL IV PRN (20:55)
[2024-08-18] MEDS ORDERED: ACETAMINOPHEN 325 MG TABLET PO PRN (20:55)
[2024-08-18] MEDS ORDERED: MORPHINE 2 MG/ML SYR IV PRN (22:42)
[2024-08-19] MEDS: TRAZODONE 50 MG TABLET ONE (00:08)
[2024-08-19] MEDS: CEFAZOLIN 1 GM in NA CHLORIDE 0.9% 50 ML IVPB SCH (00:17)
[2024-08-19] MEDS: TRAZODONE 50 MG TABLET PO SCH (00:17)
[2024-08-19 06:10] LABS: Absolute Basophils 0.1 K/uL (0-0.5); Absolute Eosinophils 0.3 K/uL (0-0.5); Absolute Lymphocytes (CBC) 2.5 K/uL (0.7-4.9); Absolute Neutrophil 6.1 K/uL (1.8-8.0); Basophils % 0.6 % (0-1.3); Hematocrit 35.4 % (39.6-49.0); Hemoglobin 12.4 g/dL (13.6-17.9); Lymphocytes % 25.2 % (15.3-44.8); MCH 32.8 pg (27.0-35.0); MCHC 35.1 g/dL (32.0-36.0); MCV 93.4 fL (80-100); MPV 7.3 fL (7.6-11.3); Monocytes % 9.8 % (3.3-12.3); Neutrophils % 61.4 % (41.7-73.7); Nucleated Red Blood Cells % 0.1 % (0-0); Platelets 123 thou/uL (152-406); RBC Red Blood Cell Count 3.79 M/uL (4.33-5.43)
[2024-08-19 06:34] LABS: AST/SGOT 15 U/L (15-37); Albumin 2.9 g/dL (3.4-5.0); Albumin/Globulin Ratio 0.9 (1.1-1.8); Alkaline Phosphatase 103 U/L (45-117); Anion Gap 7.3 mEq/L (5.0-15.0); BUN Blood Urea Nitrogen 15 mg/dL (7-18); Bicarbonate 31 mEq/L (21-32); Bilirubin Total 1.8 mg/dL (0.2-1.0); Globulin 3.2 g/dL (2.3-3.5); Glomerular Filtration Rate 86 ml/min (=/>90); Glucose Level 103 mg/dL (74-106); Potassium 3.3 mEq/L (3.5-5.1); Protein, Total 6.1 g/dL (6.4-8.2); Sodium Level 139 mEq/L (136-145)
[2024-08-19 06:40] LABS: ALT/SGPT < 14 U/L (16-61)
[2024-08-19] MEDS: Ringers Lactate 1,000 ML IV ONE (08:40)
[2024-08-19] MEDS: Ringers Lactate 1,000 ML IV SCH (08:50)
[2024-08-19 09:46] LABS: Specific Gravity 1.023 (1.005-1.030); Sqamous Epithelial None Seen /HPF (None Seen); Urine Bacteria None Seen /HPF (<20); Urine Bilirubin NEGATIVE (Negative); Urine Blood 3+ (OVER) (Negative); Urine Clarity Extremely Turbid (Clear); Urine Color Light-Orange (Yellow); Urine Culture Reflex Order REFLEXED; Urine Glucose NEGATIVE (Negative); Urine Ketones NEGATIVE (Negative); Urine Microscopic Reflex YN ORDER UMIC; Urine Nitrite NEGATIVE (Negative); Urine Protein 2+ (Negative); Urine RBC >50 /HPF (None Seen); Urine Urobilinogen 2+ (Normal); Urine WBC 20-50 /HPF (<5); Urine pH 8.5 (5.0-7.0)
--- NOTE | 2024-08-19 13:34 | P.PN ---
Date of Service: 08/19/24 Subjective: Right leg swelling and redness is improving. Vitals are stable overnight. His is at bedside he is very hard of hearing. He denies any fevers and chills. Review of Systems 10-point ROS is otherwise unremarkable Physical Examination - Vital Signs Temperature: 97.2 F Blood Pressure: 136/78 Pulse: 82 Respirations: 18 Pulse Ox (%): 92 - Physical Exam General: Alert, In no apparent distress, Cooperative HEENT: Atraumatic, Normocephalic Neck: 2+ carotid pulse no bruit, No Thyromegaly Respiratory: Clear to auscultation bilaterally, Normal air movement Cardiovascular: Regular rate/rhythm, Normal S1 S2 Capillary refill: <2 Seconds Gastrointestinal: Soft and benign, W/out hepatosplenomegaly Musculoskeletal: No clubbing, Erythema, Tenderness, Warmth Integumentary: Tenderness/swelling, Erythema, Warmth Neurological: Normal strength at 5/5 x4 extr, Cranial nerves 3-12 intact Lymphatics: No axilla or inguinal lymphadenopathy - Studies Laboratory Data (last 24 hrs) 08/18/24 08/18/24 08/18/24 17:45 17:45 17:45 WBC 9.90 Hgb 13.9 Hct 39.3 L Plt Count 155 PT 25.7 H INR 2.35 APTT 39.6 H Sodium 139 Potassium 4.2 BUN 16 Creatinine 1.13 Glucose 101 Total Bilirubin 1.6 H AST 15 ALT < 14 L Alkaline Phosphatase 131 H Assessment and Plan - Plan Right lower extremity cellulitis Pain control Continue Ancef CT findings noted Doppler negative for DVT X-ray no fracture Surgical consult Hyperbilirubinemia Thrombocytopenia Signs of sepsis? Continue to monitor Obtain LFT repeat CMP Consider right upper quadrant ultrasound Hypertension Antihypertensives titrated Continue home medications and titrate as needed Hyperlipidemia Continue statin Hypokalemia Replace potassium Check magnesium Atrial fibrillation Continue home medications and titrate as needed Will hold Xarelto for now GI/DVT prophylaxis Advanced directive full code Discharge Plan: Home Plan to discharge in: 48 Hours - Advance Directives Does patient have a Living Will: No Does patient have a Durable POA for Healthcare: No - Code Status/Comfort Care Code Status: Full Code Time Spent Managing Pts Care (In Minutes): 48
[2024-08-19] MEDS: LIDOCAINE HCL/EPINEPHRINE 20 ML MDV ONE (14:17)
[2024-08-19] MEDS ORDERED: propofoL 200 MG/20 ML VIAL IV ONE (14:22)
[2024-08-19] MEDS ORDERED: FENTANYL CITR 100 MCG/2 ML ONE (14:22)
[2024-08-19] MEDS ORDERED: LIDOCAINE 2% MPF 5 ML VIAL ONE (14:22)
--- NOTE | 2024-08-19 15:19 | P.OP ---
Preoperative diagnosis: RIGHT Knee Hematoma / Fall Postoperative diagnosis: RIGHT Knee Hematoma / Fall Primary procedure: Incision and Drainage of RIGHT Knee Hematoma Secondary procedure: Debridement of Skin Anesthesia: GETA Estimated blood loss: <20cc Specimen: Cultures, Debridement Tissue Findings: ~ 3-4cm fibrinous clot anterior to patellar tendon Complications: None Transferred to: Recovery Room Condition: Good
[2024-08-19] MEDS: HYDROCODONE/APAP 5/325 MG TAB PO PRN (20:51)
--- NOTE | 2024-08-19 22:15 | OP ---
Date of Procedure: 08/19/2024 Surgeon: Emile Rasmussen MD, Brief History Of Present Illness: The patient is an 89-year-old male who sustained a fall, developed a hematoma while on Xarelto several weeks ago, ultimately did not resolve, has been getting more [place] and painful as of late and as such came to the emergency room with the above stated issue and kaden med appropriate for operative intervention when hematoma was discovered on imaging. Preoperative Diagnoses: Right knee hematoma, status post fall. Postoperative Diagnoses: Right knee hematoma, status post fall. Procedures Performed: 1. Incision and drainage of right knee hematoma. 2. Debridement of tissue and skin from right knee. Anesthesia: General endotracheal. Estimated Blood Loss: 200 cc. Specimens: Culture sent for both aerobic and anaerobic speciation. Debridement tissue. Findings: Approximately 3 cm fibrinous clot anterior to the patellar tendon. Complications: None. Disposition: The patient was transferred to recovery room in good condition. Procedure In Detail: After informed was obtained, patient was brought to the operating room prepped and draped in the usual fashion. After adequate anesthesia was achieved, I made an elliptical incisi on circumferentially around an area of injury to the right knee where an abrasion was evident with so me tracking. I removed this area. I then encountered a fibrinous clot, which was cultured for aerob ic and anaerobic speciation. I then evacuated this clot, sent some for pathologic examination and cu lture. The area was completely cleared of all clot material. The area was copiously irrigated. No additional hemostatic maneuvers were required. After the area was cleansed thoroughly, it was packed with Vashe soaked Kerlix and a sterile dressing was placed over top. The patient tolerated the proc edure well without incident or complication, transferred to PACU in good condition. All counts were correct at the end of the case. TK/MODL Voice ID: [id number] Report ID: [id number]
[2024-08-20 06:04] LABS: AST/SGOT 14 U/L (15-37); Albumin 2.6 g/dL (3.4-5.0); Albumin/Globulin Ratio 0.9 (1.1-1.8); Alkaline Phosphatase 97 U/L (45-117); Anion Gap 8.7 mEq/L (5.0-15.0); BUN Blood Urea Nitrogen 13 mg/dL (7-18); Bicarbonate 28 mEq/L (21-32); Bilirubin Direct 0.5 mg/dL (0-0.2); Bilirubin Indirect, Calculated 1.2 mg/dL (0.2-0.8); Bilirubin Total 1.7 mg/dL (0.2-1.0); Glomerular Filtration Rate 86 ml/min (=/>90); Glucose Level 97 mg/dL (74-106); Potassium 3.7 mEq/L (3.5-5.1); Protein, Total 5.6 g/dL (6.4-8.2); Sodium Level 140 mEq/L (136-145)
[2024-08-20 06:05] LABS: ALT/SGPT < 14 U/L (16-61)
--- NOTE | 2024-08-20 13:49 | P.PN ---
Date of Service: 08/20/24 Subjective: Seen postsurgery. Resting comfortably in bed. Denies fevers and chills. On room air Review of Systems 10-point ROS is otherwise unremarkable Physical Examination - Vital Signs Temperature: 97.2 F Blood Pressure: 136/78 Pulse: 82 Respirations: 18 Pulse Ox (%): 92 - Physical Exam General: Alert, In no apparent distress, Cooperative HEENT: Atraumatic, Normocephalic Neck: 2+ carotid pulse no bruit, No Thyromegaly Respiratory: Clear to auscultation bilaterally, Normal air movement Cardiovascular: Regular rate/rhythm, Normal S1 S2 Capillary refill: <2 Seconds Gastrointestinal: Soft and benign, W/out hepatosplenomegaly Musculoskeletal: No clubbing, Erythema, Tenderness, Warmth Integumentary: Tenderness/swelling, Erythema, Warmth Neurological: Normal strength at 5/5 x4 extr, Cranial nerves 3-12 intact Lymphatics: No axilla or inguinal lymphadenopathy - Studies Laboratory Data (last 24 hrs) 08/18/24 08/18/24 08/18/24 17:45 17:45 17:45 WBC 9.90 Hgb 13.9 Hct 39.3 L Plt Count 155 PT 25.7 H INR 2.35 APTT 39.6 H Sodium 139 Potassium 4.2 BUN 16 Creatinine 1.13 Glucose 101 Total Bilirubin 1.6 H AST 15 ALT < 14 L Alkaline Phosphatase 131 H Assessment and Plan - Plan Right lower extremity cellulitis Status post incision and drainage of right knee hematoma / debridement of skin Tissue cultures pending Continue Ancef Appreciate surgery help Abnormal urinalysis Urine culture results no growth thus far Hyperbilirubinemia Thrombocytopenia Signs of sepsis? Continue to monitor Obtain LFT repeat CMP Consider right upper quadrant ultrasound Hypertension Antihypertensives titrated Continue home medications and titrate as needed Hyperlipidemia Continue statin Tachycardia May need fluid. Will continue to monitor Generalized weakness implementation services analyst consult for wheelchair Hypokalemia resolved Atrial fibrillation Continue home medications and titrate as needed Will hold Xarelto for now GI/DVT prophylaxis Advanced directive full code Discharge Plan: Home Plan to discharge in: 48 Hours - Advance Directives Does patient have a Living Will: No Does patient have a Durable POA for Healthcare: No - Code Status/Comfort Care Code Status: Full Code Time Spent Managing Pts Care (In Minutes): 48
[2024-08-20] MEDS: ATORVASTATIN 40 MG TAB PO ONE (13:54)
[2024-08-20] MEDS: FUROSEMIDE 20 MG TABLET PO ONE (13:54)
[2024-08-20] MEDS: RIVAROXABAN 20 MG TABLET PO ONE (13:54)
[2024-08-20] MEDS: METOPROLOL XL 50 MG TAB PO ONE (13:54)
[2024-08-20] MEDS: CEPHALEXIN 500 MG CAP PO SCH (17:30)
[2024-08-20] MEDS: TRAZODONE 50 MG TABLET PO PRN (20:55)
[2024-08-20] MEDS ORDERED: CEPHALEXIN 250 MG CAP PO SCH (21:00)
[2024-08-21 04:53] VITALS: BMI 24.8
[2024-08-21 05:02] VITALS: TEMP 97.9
[2024-08-21 05:43] LABS: Absolute Eosinophils 0.4 K/uL (0-0.5); Absolute Lymphocytes (CBC) 2.7 K/uL (0.7-4.9); Absolute Monocytes 0.8 K/uL (0.1-1.3); Basophils % 0.5 % (0-1.3); Eosinophils % 4.6 % (0-4.4); Hematocrit 31.7 % (39.6-49.0); Hemoglobin 11.5 g/dL (13.6-17.9); Lymphocytes % 33.7 % (15.3-44.8); MCH 33.3 pg (27.0-35.0); MCHC 36.2 g/dL (32.0-36.0); MCV 92.1 fL (80-100); MPV 7.3 fL (7.6-11.3); Monocytes % 10.7 % (3.3-12.3); Neutrophils % 50.5 % (41.7-73.7); Nucleated Red Blood Cells % 0.1 % (0-0); Platelets 111 thou/uL (152-406); RBC Red Blood Cell Count 3.44 M/uL (4.33-5.43); Red Cell Distribution Width 14.2 % (12.1-15.2)
[2024-08-21 05:46] LABS: Anion Gap 8.7 mEq/L (5.0-15.0); Potassium 3.7 mEq/L (3.5-5.1)
--- NOTE | 2024-08-21 07:18 | P.DS ---
Admission Date: 08/18/24 Discharge Date: 08/21/24 Disposition: ROUTINE DISCHARGE Discharge Condition: GOOD Reason for Admission: Pain and swelling in the right leg Hospital Course: 89-year-old male with a past medical history of A-fib, CAD, COPD, high cholesterol who presented with right leg swelling and redness. He was found to have right leg cellulitis and started on IV antibiotics. General surgery was consulted and he was taken for incision and drainage of right knee hematoma alongside debridement of skin. Blood cultures and tissue cultures did not grow any significant bacteria. His IV antibiotics were transitioned over to oral antibiotic. The remainder of his medical problems are chronic and stable. He is medically optimized for discharge Vital Signs/Physical Exam: Temp Pulse Resp BP Pulse Ox 97.9 F 78 18 134/88 94 08/21/24 04:00 08/21/24 04:00 08/21/24 04:00 08/21/24 04:00 08/21/24 04:00 General: Alert, In no apparent distress HEENT: Atraumatic, Normocephalic Neck: Supple, 2+ carotid pulse no bruit Respiratory: Clear to auscultation bilaterally, Normal air movement Cardiovascular: No edema, Normal pulses Capillary refill: <2 Seconds Gastrointestinal: Normal bowel sounds, Hypoactive Musculoskeletal: No clubbing, No swelling Integumentary: No rashes, No breakdown Neurological: Normal gait, Normal speech Lymphatics: No axilla or inguinal lymphadenopathy External genitalia: No edema, No lesions Laboratory Data at Discharge: WBC 7.90 thou/uL (4.3-10.9) 08/21/24 04:56 Hgb 11.5 g/dL (13.6-17.9) L 08/21/24 04:56 Hct 31.7 % (39.6-49.0) L 08/21/24 04:56 Plt Count 111 thou/uL (152-406) L 08/21/24 04:56 PT 25.7 SECONDS (10.0-13.0) H 08/18/24 17:45 INR 2.35 08/18/24 17:45 APTT 39.6 SECONDS (24.3-36.9) H 08/18/24 17:45 Sodium 139 mEq/L (136-145) 08/21/24 04:56 Potassium 3.7 mEq/L (3.5-5.1) 08/21/24 04:56 BUN 11 mg/dL (7-18) 08/21/24 04:56 Creatinine 0.68 mg/dL (0.70-1.30) L 08/21/24 04:56 Glucose 91 mg/dL (74-106) 08/21/24 04:56 Total Bilirubin 1.7 mg/dL (0.2-1.0) H 08/20/24 05:29 AST 14 U/L (15-37) L 08/20/24 05:29 ALT < 14 U/L (16-61) L 08/20/24 05:29 Alkaline Phosphatase 97 U/L (45-117) 08/20/24 05:29 Home Medications: Atorvastatin Calcium 40 mg PO DAILY 08/18/24 Furosemide 20 mg PO DAILY 08/18/24 Metoprolol Succinate 50 mg PO DAILY 08/18/24 Rivaroxaban [Xarelto] 20 mg PO DAILY 08/18/24 Trazodone [Desyrel*] 50 mg PO BEDTIME PRN PRN 08/18/24 Cephalexin [Keflex*] 500 mg PO BIDWM 7 Days #14 cap 08/21/24 New Medications: Cephalexin [Keflex*] 500 mg PO BIDWM 7 Days #14 cap Physician Discharge Instructions: PROBLEM: Cellulitus S/P Incision/Drainage of Rt Knee Abscess GOAL: Clear understanding of disease process INSTRUCTIONS: Diet: Heart Healthy Activity: Ad escobar DME DME: Date Ordered: Name of Company: [facility] Services Needed: Home Health Name of Company: [facility] Date or Referral: 08/20/24 IMMUNIZATION Influenza Vaccine Indicated: No Influenza Vaccine Given: Date Given: Pneumonia Vaccine Indicated: No Pneumonia Vaccine Given: Date Given: Daily dressing changes: Remove all dressings irrigate wound with sterile saline then repack with Vashe soaked Kerlix then apply dry gauze wrap from foot to above knee with Kerlix followed by Chele bandage elevate lower extremity. Diet: Regular Activity: Ad escobar Followup: Emile Rasmussen MD [ACTIVE - CAN ADMIT] - Vineet Sen DO [Primary Care Provider] -
[2024-08-21 08:51] VITALS: O2SAT 93
[2024-08-21] MEDS: METOPROLOL XL 50 MG TAB PO SCH (09:46)
[2024-08-21] MEDS: ATORVASTATIN 40 MG TAB PO SCH (09:46)
[2024-08-21 09:47] VITALS: BP 100/50
[2024-08-21] MEDS: RIVAROXABAN 20 MG TABLET PO SCH (09:47)
[2024-08-21] MEDS: FUROSEMIDE 20 MG TABLET PO SCH (09:47)
--- NOTE | 2024-08-21 16:57 | EKG ---
Test Date: 2024-08-18 Test Time: 17:53:27 Programs Director: SB MEASUREMENT RESULTS: Intervals: Rate: 69 ID: QRSD: [id number] QT: 452 QTc: 484 [place]: P: ID: [id number]: [id number] T: 74 INTERPRETIVE STATEMENTS: Atrial fibrillation Left axis deviation Right bundle branch block Anterior infarct, age undetermined Abnormal ECG Compared to ECG 10/19/2023 15:26:55 Myocardial infarct finding now present Electronically Signed On 08-21-24 16:47:48 SAFETY AND HEALTH MANAGER by Facundo Armstrong
== END 2024-08-21 09:45 | disposition home or self-care (01) | DRG 571 ==
LOC: ER 15:13 → ERHOLD 20:55 → 3RD-ICU 21:50
PROVIDERS: ADMIT Family Medicine; ATTEND Family Medicine
PROC: 0T9B70Z Drainage of Bladder with Drainage Device, Via Natural or Artificial Opening (ICD-10-PCS; 2024-08-18)
PROC: 0JBN0ZZ Excision of Right Lower Leg Subcutaneous Tissue and Fascia, Open Approach (ICD-10-PCS; principal; 2024-08-19 15:45)
DX: L03.115 Cellulitis of right lower limb (principal); I48.20 Chronic atrial fibrillation, unspecified; E87.6 Hypokalemia; D69.6 Thrombocytopenia, unspecified; E78.00 Pure hypercholesterolemia, unspecified; H91.90 Unspecified hearing loss, unspecified ear; E80.6 Other disorders of bilirubin metabolism; J44.9 Chronic obstructive pulmonary disease, unspecified; S80.11XA Contusion of right lower leg, initial encounter; L02.415 Cutaneous abscess of right lower limb; I25.10 Atherosclerotic heart disease of native coronary artery without angina pectoris; R00.0 Tachycardia, unspecified; Z79.01 Long term (current) use of anticoagulants; Z79.899 Other long term (current) drug therapy
CPT/HCPCS: 36415; 51702; 73700; 80048; 80053; 80076; 81001; 81003; 83605; 85025; 85610; 85730; 87040; 87070; 87075; 87077; 87086; 87088; 87176; 87186; 87205; 88304; 93005; 93926; 93971; 96365; 99285; J0690; J2003; J2704; J3010; J7050; J7120